=== PATIENT | male | born 1970 | race Two or more races ===

== ENCOUNTER 2020-07-31 11:03 | Emergency (ER) | payer OTHER ==
[~2020-07-31] VITALS: Ht 175.3 cm; Wt 79.8 kg
[~2020-07-31 11:03] MED LIST: NO TOMA MEDICAMENTO
[2020-07-31] MEDS ORDERED: ARMOUR THYROID120 M1 PO (11:15)
== END 2020-07-31 14:19 | disposition home or self-care (01) ==
LOC: EMR PED 11:03 → ER 11:17 → EMR PED 11:17 → ER 14:19
DX: B34.9 Viral infection, unspecified (principal); Z03.818 Encounter for observation for suspected exposure to other biological agents ruled out

== ENCOUNTER 2022-04-09 09:38 | Outpatient (CLI) | payer OTHER ==
[~2022-04-09 09:38] MED LIST changes: +ARMOUR THYROID120 M1 PO
== END 2022-04-09 09:51 | disposition home or self-care (01) ==
LOC: SONOGRAMA 09:38
PROVIDERS: ATTEND Internal Medicine Endocrinology, Diabetes & Metabolism
DX: C73 Malignant neoplasm of thyroid gland (principal); E89.0 Postprocedural hypothyroidism

== ENCOUNTER 2023-07-11 08:48 | Outpatient (CLI) | payer OTHER | END 2023-07-11 08:59 | disposition home or self-care (01) | LOC: MRI 08:48 | DX: M54.50 Low back pain, unspecified (principal) | CPT/HCPCS: 72148 ==

== ENCOUNTER 2024-11-22 11:20 | Outpatient (CLI) | payer OTHER | END 2024-11-22 11:23 | disposition home or self-care (01) | LOC: SONOGRAMA 11:20 | PROVIDERS: ATTEND Internal Medicine Endocrinology, Diabetes & Metabolism | DX: D17.1 Benign lipomatous neoplasm of skin and subcutaneous tissue of trunk (principal) ==

== ENCOUNTER 2025-02-10 10:44 | Outpatient (CLI) | payer OTHER | END 2025-02-10 10:45 | disposition home or self-care (01) | LOC: SONOGRAMA 10:44 | PROVIDERS: ATTEND Pathology Anatomic Pathology & Clinical Pathology | DX: D17.4 Benign lipomatous neoplasm of intrathoracic organs (principal); N63.0 Unspecified lump in unspecified breast ==

== ENCOUNTER 2025-07-11 05:06 | Emergency (ER) | payer OTHER ==
[~2025-07-11] VITALS: Ht 175.3 cm; Wt 81.6 kg
[2025-07-11] MEDS ORDERED: ASPIRIN81 MG PO (05:28)
[2025-07-11] MEDS ORDERED: ONDANSETRON HCL 2 MG/ML VIAL IM ONE (07:45)
[2025-07-11] MEDS ORDERED: PANTOPRAZOLE SODIUM 40 MG TABLET.DR PO ONE (07:45)
[2025-07-11] MEDS ORDERED: HYOSCYAMINE SULFATE 0.125 MG TAB.SUBL SL ONE (07:45)
[2025-07-11] MEDS ORDERED: ONDANSETRON HCL 2 MG/ML VIAL ONE (07:52)
[2025-07-11] MEDS ORDERED: HYOSCYAMINE SULFATE 0.125 MG TAB.SUBL ONE (07:52)
[2025-07-11 09:50] LABS: BASO % 0.5 % (0.1-1.2); EOS # 0.01 (0.04-0.54); EOS % 0.2 % (0.7-7.0); LYMPH # 0.42 (1.18-3.74); LYMPH % 6.5 % (19.3-53.1); MEAN PLATELET VOLUME 10.50 fl (9.4-12.4); MONO # 0.45 (0.24-0.82); MONO % 7.0 % (4.7-12.5); NEUT # 5.53 (1.56-6.13); NEUT % 85.6 % (34.0-71.1); RED CELL DISTRIBUTION WIDTH 12.6 % (11.6-14.4)
[2025-07-11 10:12] LABS: ALT/SGPT 24.0 U/L (12-78); AST/SGOT 20.0 U/L (15-37); BILIRUBIN TOTAL 0.88 mg/dL (0.3-1.2); BUN CREA RATIO 20.0 (7.0-25.0); CREATININE SERUM 0.82 mg/dL (0.70-1.30); GFR 97.19; GLOBULINA 3.2 G/DL (2.4-3.5); GLUCOSE FASTING 128.0 mg/dL (65-100); OSMOLALITY SERUM 284.0 MOSM/KG (275-295)
[2025-07-12] MEDS ORDERED: HYOSCYAMINE0.125 M2 (17:19)
[2025-07-12] MEDS ORDERED: PROTONIX20 MG PO (17:19)
[2025-07-12] MEDS ORDERED: METRONIDAZOLE500 MG PO (21:29)
[2025-07-12] MEDS ORDERED: INTESTINEX680 M1 PO (21:29)
[2025-07-12] MEDS ORDERED: CIPRO500 MG PO (21:29)
== END 2025-07-11 13:40 | disposition home or self-care (01) ==
LOC: ER 05:06
PROVIDERS: General Practice
DX: K52.89 Other specified noninfective gastroenteritis and colitis (principal); B34.9 Viral infection, unspecified

== ENCOUNTER 2025-07-12 17:04 | Emergency (ER) | payer OTHER ==
[~2025-07-12] VITALS: Ht 175.3 cm; Wt 81.6 kg
[~2025-07-12 17:04] MED LIST changes: +ASPIRIN81 MG PO
[2025-07-12] MEDS ORDERED: PROTONIX20 MG PO (17:19)
[2025-07-12] MEDS ORDERED: HYOSCYAMINE0.125 M2 (17:19)
[2025-07-12] MEDS ORDERED: FAMOTIDINE/PF 20 MG/2 ML VIAL ONE (17:44)
[2025-07-12] MEDS ORDERED: ONDANSETRON HCL 2 MG/ML VIAL ONE (17:44)
[2025-07-12] MEDS ORDERED: FAMOTIDINE/PF 20 MG/2 ML VIAL IV ONE (17:45)
[2025-07-12] MEDS ORDERED: ONDANSETRON HCL 2 MG/ML VIAL IV ONE (17:45)
[2025-07-12] MEDS ORDERED: 0.9 % SODIUM CHLORIDE 1,000 ML IV ONE (17:45)
[2025-07-12 18:27] LABS: BASO % 0.5 % (0.1-1.2); EOS # 0.07 (0.04-0.54); EOS % 1.1 % (0.7-7.0); LYMPH # 1.38 (1.18-3.74); LYMPH % 21.5 % (19.3-53.1); MEAN PLATELET VOLUME 10.20 fl (9.4-12.4); MONO # 0.92 (0.24-0.82); NEUT # 4.02 (1.56-6.13); NEUT % 62.4 % (34.0-71.1); RED CELL DISTRIBUTION WIDTH 12.7 % (11.6-14.4)
[2025-07-12 18:49] LABS: URINE APPEARANCE Clear; URINE BILIRRUBIN Small (NEGATIVE); URINE BLOOD Negative; URINE COLOR Dark Yellow; URINE GLUCOSE Negative (NEGATIVE); URINE KETONE Trace (NEGATIVE); URINE LEUKOCYTE Negative; URINE NITRATE Negative; URINE PROTEIN 30 (NEGATIVE); URINE UROBILINOGEN 0.2 E.U./dl
[2025-07-12 18:53] LABS: URINE BACTERIA 9.5 uL (0.0-1933); URINE CAST 2.19 uL (0.0-1.40); URINE EPITHELIAL CELLS 8.1 uL (0.0-38.8); URINE RBC 9.8 uL (0.0-20.8); URINE WBC 3.6 uL (0.0-23.2)
[2025-07-12 18:55] LABS: MONO % 14.3 % (4.7-12.5)
[2025-07-12 19:02] LABS: INR 1.02
[2025-07-12 19:13] LABS: ALT/SGPT 25.0 U/L (12-78); AST/SGOT 19.0 U/L (15-37); BILIRUBIN TOTAL 1.23 mg/dL (0.3-1.2); BUN CREA RATIO 18.0 (7.0-25.0); CREATININE SERUM 1.18 mg/dL (0.70-1.30); GFR 63.86; GLOBULINA 3.5 G/DL (2.4-3.5); GLUCOSE FASTING 110.0 mg/dL (65-100); OSMOLALITY SERUM 283.0 MOSM/KG (275-295)
[2025-07-12 19:14] LABS: ob NEGATIVE (NEGATIVE)
[2025-07-12 19:42] LABS: FECAL LEUKOCYTES POSITIVE (NEGATIVE)
[2025-07-12] MEDS ORDERED: LACTOBACILLUS ACIDOPHILUS 1 CAP CAP PO ONE ×2 (21:24→21:30)
[2025-07-12] MEDS ORDERED: CEFTRIAXONE SODIUM 1,000 MG VIAL ONE (21:24)
[2025-07-12] MEDS ORDERED: INTESTINEX680 M1 PO (21:29)
[2025-07-12] MEDS ORDERED: METRONIDAZOLE500 MG PO (21:29)
[2025-07-12] MEDS ORDERED: CIPRO500 MG PO (21:29)
[2025-07-12] MEDS ORDERED: CEFTRIAXONE SODIUM 1,000 MG VIAL IV ONE (21:30)
== END 2025-07-12 21:47 | disposition home or self-care (01) ==
LOC: ER 17:04
DX: A09 Infectious gastroenteritis and colitis, unspecified (principal); R10.13 Epigastric pain; R11.0 Nausea
CPT/HCPCS: 36415; 74177; Q9965